=== PATIENT | female | born 1990 | race African-American/Black ===

== ENCOUNTER 2019-07-28 19:10 | Emergency (ER) | payer OTHER ==
--- NOTE | 2019-07-28 19:37 | PDOC ---
Rapid Medical Evaluation Medical Evaluation: 07/28/19 19:35 Pt presents for three days of flu like symptoms. Her son has similar symptoms. Exam: lungs CTAB Orders: flu Pt to proceed to the ER for evaluation Discharge Disposition - Diagnosis Flu-like symptoms - Referrals - Patient Instructions - Post Discharge Activity
[2019-07-28 19:55] VITALS: BP 100/65; PULSE 75; TEMP 98; BMI 21.9
--- NOTE | 2019-07-28 19:55 | PDOC ---
History of Present Illness - General Chief Complaint: Cold Symptoms Stated Complaint: COLD SYMPTOMS Time Seen by Provider: 07/28/19 19:41 - History of Present Illness Initial Comments: 07/28/19 19:54 21-year-old female positive flu contact at home flulike symptoms x2 days Past History - Past Medical History Allergies/Adverse Reactions: Allergies Allergy/AdvReac Type Severity Reaction Status Date / Time No Known Allergies Allergy Verified 07/28/19 19:46 Home Medications: Ambulatory Orders Oseltamivir Phosphate [Tamiflu] 75 mg PO BID #10 capsule 07/28/19 COPD: No - Psycho Social/Smoking Cessation Hx Smoking History: Never smoked Hx Alcohol Use: No Drug/Substance Use Hx: No Review of Systems - Review of Systems Constitutional: Yes: Fever HEENTM: Yes: Nose Congestion Respiratory: Yes: Cough *Physical Exam - Vital Signs Last Vital Signs Temp Pulse Resp BP Pulse Ox 98 F 75 18 100/65 97 07/28/19 19:44 07/28/19 19:44 07/28/19 19:44 07/28/19 19:44 07/28/19 19:44 - Physical Exam 07/28/19 19:54 GENERAL: The patient is awake, alert, and fully oriented, in no acute distress. HEAD: Normal with no signs of trauma. EYES: sclera anicteric, conjunctiva clear. ENT: Ears normal tympanic membranes normal oropharynx clear uvula midline NECK: Normal range of motion LUNGS: Breath sounds equal, clear to auscultation bilaterally. No wheezes, and no crackles. HEART: S1 and S2 without murmur, rub or gallop. ABDOMEN: Soft, nontender, normoactive bowel sounds. No guarding, no rebound. No masses. EXTREMITIES: Normal range of motion, no edema. No clubbing or cyanosis. No cords, erythema, or tenderness. NEUROLOGICAL: Cranial nerves II through XII grossly intact. Normal speech, normal gait. PSYCH: Normal mood, normal affect. SKIN: Warm, Dry, normal turgor, no rashes or lesions noted. 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 Tamiflu for flu symptoms 5 days twice a day as directed. Return to the emergency room for worsening symptoms and without fail follow-up with your primary care physician in 2 to 3 days for further evaluation and treatment options. - Post Discharge Activity
== END 2019-07-28 20:22 | disposition home or self-care (01) ==
LOC: JER 19:10 → JERFT 19:10
DX: J11.1 Influenza due to unidentified influenza virus with other respiratory manifestations (principal)
CPT/HCPCS: 87804; 99281-25